=== PATIENT | female | born 1995 | race Caucasian/White ===

== ENCOUNTER 2024-06-08 16:33 | Inpatient (IN) | payer BC ==
[2024-06-08] MEDS: LACTATED RINGERS 1,000 ML IV SCH (17:40)
[2024-06-08] MEDS ORDERED: TRANEXAMIC 1,000 MG/100ML-NACL 1,000 MG in EMPTY BAG 1 BAG IV PRN (17:47)
[2024-06-08] MEDS ORDERED: miSOPROStoL 200 MCG TAB PO PRN (17:47)
[2024-06-08] MEDS ORDERED: miSOPROStoL 200 MCG TAB RECTAL PRN (17:47)
[2024-06-08] MEDS ORDERED: CARBOPROST TROMETHAMINE 250 MCG/ML 1 ML AMP IM PRN (17:47)
[2024-06-08] MEDS ORDERED: TERBUTALINE 1 MG/ML VIAL SQ PRN (17:47)
[2024-06-08] MEDS ORDERED: OXYTOCIN 10 UNIT/ML 1 ML VIAL IM PRN (17:47)
[2024-06-08] MEDS ORDERED: METHYLERGONOVINE 0.2 MG/ML 1 ML AMP IM PRN (17:47)
[2024-06-08] MEDS: OXYTOCIN 30 UNITS/500 ML NS 30 UNIT in SALINE 1 500ML.BAG IV SCH (18:00)
[2024-06-08 18:04] LABS: Basophils % (A) 0 %; Eosinophils # (A) 0.1 k/uL (0-0.7); Eosinophils % (A) 1 %; HCT 37.9 % (34.0-46.0); HGB 13.1 gm/dL (11.4-16.0); Lymphocytes # (A) 1.8 k/uL (1.0-4.8); Lymphocytes % (A) 22 %; MCH 30.5 pg (25.0-35.0); MCHC 34.5 g/dL (31.0-37.0); MCV 88.4 fL (80.0-100.0); Mean Platelet Volume 8.2; Monocytes # (A) 0.4 k/uL (0-1.0); Monocytes % (A) 4 %; Neutrophils # (A) 5.9 k/uL (1.3-7.7); Neutrophils % (A) 72 %; Platelet Count 173 k/uL (150-450); RBC 4.29 m/uL (3.80-5.40); RDW 12.3 % (11.5-15.5); WBC 8.2 k/uL (3.8-10.6)
[2024-06-08] MEDS ORDERED: fentaNYL (PF) 50 MCG/ML 5 ML AMP ONE (20:50)
[2024-06-08] MEDS ORDERED: ROPIVACAINE 5 MG/ML 30 ML VIAL ONE (20:50)
[2024-06-08] MEDS ORDERED: SODIUM CHLORIDE 0.9% 250 ML BAG ONE (20:50)
[2024-06-08] MEDS: LIDOCAINE 0.5% (PF) 5 MG/ML (50 ML SDV) SQ PRN (22:38)
[2024-06-08] MEDS ORDERED: ROPIVACAINE 225 MG, fentaNYL (PF). 450 MCG in SODIUM CHLORIDE 0.9% 171 ML EPIDURAL ONE (22:44)
[2024-06-08] MEDS ORDERED: ZOLPIDEM 5 MG TAB PO PRN (22:49)
[2024-06-08] MEDS ORDERED: BENZOCAINE/MENTHOL SPRAY 1 GM/SPRAY AEROSOL TOPICAL PRN (22:49)
[2024-06-08] MEDS ORDERED: diphenhydrAMINE 25 MG CAP PO PRN (22:49)
[2024-06-08] MEDS ORDERED: HYDROCORTISONE 2.5% RECTAL CREAM 30 GM TUBE RECTAL PRN (22:49)
[2024-06-08] MEDS ORDERED: SIMETHICONE 80 MG CHEWABLE PO PRN (22:49)
[2024-06-08] MEDS ORDERED: LANOLIN CREAM 1 GM TUBE TOPICAL PRN (22:49)
[2024-06-08] MEDS ORDERED: diphenhydrAMINE 50 MG/ML 1 ML VIAL IVP PRN ×2 (22:49)
[2024-06-08] MEDS ORDERED: diphenhydrAMINE 50 MG CAP PO PRN (22:49)
[2024-06-09] MEDS: ACETAMINOPHEN TAB 500 MG TAB PO SCH (04:02)
[2024-06-09] MEDS: IBUPROFEN 800 MG TAB PO SCH (04:02)
[2024-06-09 06:27] LABS: Basophils % (A) 0 %; Eosinophils % (A) 0 %; HCT 34.8 % (34.0-46.0); HGB 12.1 gm/dL (11.4-16.0); Lymphocytes # (A) 2.2 k/uL (1.0-4.8); Lymphocytes % (A) 19 %; MCH 30.6 pg (25.0-35.0); MCHC 34.9 g/dL (31.0-37.0); MCV 87.7 fL (80.0-100.0); Mean Platelet Volume 8.9; Monocytes # (A) 0.6 k/uL (0-1.0); Monocytes % (A) 5 %; Neutrophils # (A) 8.8 k/uL (1.3-7.7); Neutrophils % (A) 74 %; Platelet Count 146 k/uL (150-450); RBC 3.96 m/uL (3.80-5.40); RDW 12.8 % (11.5-15.5); WBC 11.8 k/uL (3.8-10.6)
--- NOTE | 2024-06-09 07:53 | P.HPOB ---
History of Present Illness H&P Date: 06/09/24 Chief Complaint: SROM 29-year-old A1 P0 presented at 38 weeks and 1 day with spontaneous rupture membranes at 1500. Clear fluid was noted. On presentation to [facility] her cervix was 1-2 cm dilated, 70% effaced, and -2 station. She is lilia irregularly. heart tones category 1. Review of Systems All systems: negative Constitutional: Denies chills, Denies fever Eyes: denies blurred vision, denies pain Ears, nose, mouth and throat: Denies headache, Denies sore throat Cardiovascular: Denies chest pain, Denies shortness of breath Respiratory: Denies cough Gastrointestinal: Denies abdominal pain, Denies diarrhea, Denies nausea, Denies vomiting Genitourinary: Denies dysuria, Denies hematuria Musculoskeletal: Denies myalgias Integumentary: Denies pruritus, Denies rash Neurological: Denies numbness, Denies weakness Psychiatric: Denies anxiety, Denies depression Endocrine: Denies fatigue, Denies weight change Past Medical History Past Medical History: No Reported History History of Any Multi-Drug Resistant Organisms: None Reported Additional Past Surgical History / Comment(s): Kennedy teeth Past Anesthesia/Blood Transfusion Reactions: No Reported Reaction Past Psychological History: No Psychological Hx Reported Smoking Status: Never smoker Past Alcohol Use History: None Reported Past Drug Use History: None Reported - Past Family History Mother Family Medical History: Hypertension Medications and Allergies Home Medications Medication Instructions Recorded Confirmed Type RX: Pnv No.154/Iron Fum/Folic Acid 1 capsule PO DAILY 06/08/24 06/08/24 History [ Plus Vitamin Tablet] Allergies Allergy/AdvReac Type Severity Reaction Status Date / Time No Known Allergies Allergy Verified 06/08/24 16:43 Exam Osteopathic Statement: *. No significant issues noted on an osteopathic structural exam other than those noted in the History and Physical/Consult. Vital Signs Temp Pulse Resp BP Pulse Ox 06/09/24 04:00 97.5 F L 76 16 111/70 96 06/09/24 02:34 16 06/09/24 00:36 98.5 F 93 16 112/58 96 06/09/24 00:21 98.7 F 81 16 105/54 97 06/09/24 00:06 98.6 F 79 16 108/59 97 06/08/24 23:51 98.3 F 83 16 107/58 96 06/08/24 23:36 80 16 100/59 97 06/08/24 23:21 76 16 111/53 95 06/08/24 23:06 97.0 F L 84 16 110/53 97 06/08/24 22:55 97.7 F 76 16 129/63 98 06/08/24 22:35 97.8 F 82 16 112/54 99 06/08/24 17:46 98.5 F 91 16 119/72 99 06/08/24 17:00 98.5 F 91 16 119/72 99 Intake and Output 06/08/24 06/09/24 06/09/24 22:59 06:59 14:59 Intake Total 175.633 Output Total 250 42 Balance -74.367 -42 Intake: Intake, IV Titration 175.633 Amount Oxytocin 30 Units/500 ml 175.633 Ns 30 unit In Saline 1 500ml.bag @ Per Protocol IV .Q0M [facility] Rx#:[id number] Output: Urine 100 Output, Estimated Blood 150 Loss Amount Output, Quantitative 42 Blood Loss Other: # Voids 1 Weight 83.461 kg Heart: Regular rate and rhythm Lungs: Clear to auscultation bilaterally Abdomen: Soft, nontender Extremities: Negative Homans sign Results Result Diagrams: 06/09/24 06:04 Abnormal Lab Results - Last 24 Hours (Table) 06/09/24 Range/Units 06:04 WBC 11.8 H (3.8-10.6) k/uL Plt Count 146 L (150-450) k/uL Neutrophils # 8.8 H (1.3-7.7) k/uL Assessment and Plan (1) Spontaneous rupture of amniotic membranes Current Visit: Yes Status: Acute Code(s): [id number] - SNOMED Code(s): 144170717 (2) 38 weeks gestation of Current Visit: Yes Status: Acute Code(s): Z3A.38 - 38 WEEKS GESTATION OF SNOMED Code(s): 62118253 Plan: 1. Admit to family [facility] 2. Pitocin augmentation 3. Anticipate normal vaginal delivery
[2024-06-09] MEDS: SENNOSIDES-DOCUSATE SODIUM 1 EACH TAB PO SCH (07:54)
--- NOTE | 2024-06-09 07:55 | P.PROBDLV ---
Vaginal Delivery Note - . Vaginal Delivery Note: 29-year-old A1 P0 presented at 38 weeks and 1 day with spontaneous rupture membranes at 1500. Clear fluid was noted. On presentation to labor and delivery her cervix was 1-2 cm dilated, 70% effaced, and -2 station. She is lilia irregularly. heart tones category 1.Patient was admitted to [facility] and Pitocin augmentation was started. She was very uncomfortable and 3 cm dilated. She did get an epidural which worked very well for her. Her cervix was completely dilated at 2209. She pushed, and delivered a viable female infant over intact perineum under epidural anesthesia at 2217. Head delivered OA, anterior shoulder delivered gentle downward guidance followed by posterior shoulder and rest of body. Nose and mouth bulb suctioned, cord Clamped and cut, infant placed mother's abdomen. Apgars 9, 10, weight 6 lbs. 2 oz. Placenta delivered spontaneously, intact with three-vessel cord at 2219. Vagina, cervix, perineum inspected. First-degree midline laceration was repaired with 3-0 Vicryl. Estimated blood loss 150 mL. Mother and baby in stable condition.
--- NOTE | 2024-06-09 07:59 | P.DS ---
Providers Date of admission: 06/08/24 17:13 Expected date of discharge: 06/09/24 Attending physician: Rema Thompson Primary care physician: Stated None - Discharge Diagnosis(es) (1) Spontaneous rupture of amniotic membranes Current Visit: Yes Status: Resolved (2) 38 weeks gestation of Current Visit: Yes Status: Resolved (3) Status post normal vaginal delivery Current Visit: Yes Status: Acute Hospital Course: Patient presented with spontaneous rupture membranes. She underwent Pitocin augmentation and had an epidural. She had a normal vaginal delivery. Post course has been uneventful. She denies nausea, vomiting, chest pain, shortness of breath or calf pain. Patient will be discharged home day #2 in stable condition to follow-up with me in 6 weeks. Plan - Discharge Summary New Discharge Prescriptions: New RX: Ibuprofen [Motrin] 800 mg PO Q8HR #30 tab No Action RX: Pnv No.154/Iron Fum/Folic Acid [ Plus Vitamin Tablet] 1 capsule PO DAILY Discharge Medication List RX: Pnv No.154/Iron Fum/Folic Acid [ Plus Vitamin Tablet] 1 capsule PO DAILY 06/08/24 [History] RX: Ibuprofen [Motrin] 800 mg PO Q8HR #30 tab 06/09/24 [Rx] Follow up Appointment(s)/Referral(s): Rema Thompson DO [Doctor of Osteopathic Medicine] - 6 Weeks Discharge Disposition: HOME SELF-CARE
[2024-06-10 02:04] VITALS: RESP 16
[2024-06-10 08:32] VITALS: BP 121/76; PULSE 90; TEMP 98.6
== END 2024-06-10 12:50 | disposition home or self-care (01) | DRG 807 ==
LOC: FBPOP 16:33 → 4FBP 17:13
PROVIDERS: ADMIT Obstetrics & Gynecology; ATTEND Obstetrics & Gynecology
PROC: 10E0XZZ Delivery of Products of Conception, External Approach (ICD-10-PCS; principal; 2024-06-09)
PROC: 0HQ9XZZ Repair Perineum Skin, External Approach (ICD-10-PCS; 2024-06-09)
DX: O70.0 First degree perineal laceration during delivery (principal); Z37.0 Single live birth; Z3A.38 38 weeks gestation of pregnancy
CPT/HCPCS: 59025; 84112; 85025; 86850; 86900; 86901; 99213